=== PATIENT | female | born 1950 | race Caucasian/White ===

== ENCOUNTER 2017-06-26 08:15 | Emergency (ER) | payer MEDICARE ==
--- NOTE | 2017-06-26 08:17 | UC ---
Throat Pain/Nasal Jose HPI - HPI Summary HPI Summary: 66 year old female presents with cough and post nasal drip. - History of Current Complaint Stated Complaint: SORE THROAT Time Seen by Provider: 06/26/17 08:16 Hx Obtained From: Patient Onset/Duration: Lasting Days Severity: Moderate Pain Scale Used: 0-10 Numeric - 4 - Allergies/Home Medications Allergies/Adverse Reactions: Allergies Allergy/AdvReac Type Severity Reaction Status Date / Time Penicillins Allergy Unknown Verified 06/26/17 08:25 Reaction Details Sulfa Antibiotics Allergy Unknown Verified 06/26/17 08:25 Reaction Details Home Medications: Home Medications Ibuprofen TAB* [Advil TAB*] 400 mg PO Q6H PRN 06/26/17 [History Confirmed ] Zsdyyjljokruy-Jqoydpaovtzgk-Rn [Tylenol Sinus Severe 5-325-200 mg] 2 tab PO Q6H PRN 06/26/17 [History Confirmed 06/26/17] PMH/Surg Hx/FS Hx/Imm Hx Previously Healthy: Yes - Surgical History Surgical History: Yes Surgery Procedure, Year, and Place: cholecystectomy, hysterectomy,meniscus repair L knee, bone cyst removed Rhumerol head, rods lower back with cage, plates and screws - Family History Known Family History: Positive: None - Social History Alcohol Use: Weekly Substance Use Type: None Smoking Status (MU): Light Every Day Tobacco Smoker Type: Cigarettes Amount Used/How Often: 2-3 cig /day Have You Smoked in the Last Year: Yes Household Exposure Type: Cigarettes Review of Systems Constitutional: Negative Skin: Negative Eyes: Negative ENT: Sore Throat, Nasal Discharge, Sinus Congestion, Sinus Pain/Tenderness Respiratory: Negative Cardiovascular: Negative Gastrointestinal: Negative Genitourinary: Negative Motor: Negative Neurovascular: Negative Musculoskeletal: Negative Neurological: Negative Psychological: Negative All Other Systems Reviewed And Are Negative: Yes Physical Exam Triage Information Reviewed: Yes Eye Exam: Normal ENT: Positive: Pharyngeal erythema, Nasal congestion, Nasal drainage Dental Exam: Normal Neck exam: Normal Neck: Positive: 1 Respiratory Exam: Normal Cardiovascular Exam: Normal Abdominal Exam: Normal Musculoskeletal Exam: Normal Neurological Exam: Normal Psychological Exam: Normal Skin Exam: Normal Throat Pain/Nasal Course/Dx - Differential Dx/Diagnosis Provider Diagnoses: sinus congestion. cough. post nasal drip Discharge - Discharge Plan Condition: Stable Disposition: HOME Prescriptions: Azithromyxin JEANNA (NF) [Z-Jeanna (Zithromax) 250 mg tabs #6] 2 tab PO .TODAY, THEN 1 DAILY #6 tab Benzonatate [TESSALON 200 MG CAP] 200 mg PO TID PRN #30 cap PRN Reason: Cough LoraTADine TAB(NF) [Claritin 10 MG TAB(NF)] 10 mg PO DAILY #30 tab guaiFENesin/CODIEN 100MG-10MG* [Robitussin AC 100Mg-10Mg*] 5 ml PO Q8H PRN #120 ml MDD 15 ml PRN Reason: Cough Patient Education Materials: Pharyngitis (ED), Bronchospasm (ED), Acute Cough ( ED) Referrals: Dulce Polanco NP [Primary Care Provider] -
[2017-06-26 08:30] VITALS: BP 113/78
== END 2017-06-26 09:06 | disposition home or self-care (01) ==
LOC: UCCORT 08:15
DX: R05 Cough (principal); R09.82 Postnasal drip; R09.81 Nasal congestion; F17.210 Nicotine dependence, cigarettes, uncomplicated; Z88.0 Allergy status to penicillin; Z88.2 Allergy status to sulfonamides
CPT/HCPCS: 87651; 99212; G0463

== ENCOUNTER 2017-09-07 08:16 | Emergency (ER) | payer MEDICARE ==
[2017-09-07 08:27] VITALS: BP 139/59
--- NOTE | 2017-09-07 08:39 | UC ---
Respiratory Complaint HPI - HPI Summary HPI Summary: COUGH / CHEST CONGESTION X 3 DAYS + RUNNY NOSE , SORE THROAT NO FEVER, NO CHILLS - History of Current Complaint Chief Complaint: UCRespiratory Stated Complaint: ST/STUFFY NOSE Time Seen by Provider: 09/07/17 08:19 Hx Obtained From: Patient Onset/Duration: Gradual Onset, Lasting Days - 3, Still Present Timing: Constant Severity Initially: Moderate Severity Currently: Moderate Character: Cough: Nonproductive Aggravating Factors: Deep Breaths Associated Signs And Symptoms: Positive: URI, Nasal Congestion. Negative: Dyspnea, Fever, Chills, Pleuritic Chest Pain, Wheezing, Hemoptysis, Dizziness, Calf Pain, Calf Swelling - Allergies/Home Medications Allergies/Adverse Reactions: Allergies Allergy/AdvReac Type Severity Reaction Status Date / Time Penicillins Allergy Unknown Verified 09/07/17 08:27 Reaction Details Sulfa Antibiotics Allergy Unknown Verified 09/07/17 08:27 Reaction Details Home Medications: Home Medications Anti Gerd Med 1 tab PO DAILY 09/07/17 [History Confirmed 09/07/17] PMH/Surg Hx/FS Hx/Imm Hx GI/ History: Gastroesophageal Reflux Neurological History: Seizures - Surgical History Surgical History: Yes Surgery Procedure, Year, and Place: cholecystectomy, hysterectomy,meniscus repair L knee, bone cyst removed Rhumerol head, rods lower back with cage, plates and screws - Family History Known Family History: Positive: None Negative: Diabetes - Social History Alcohol Use: Weekly Substance Use Type: None Smoking Status (MU): Light Every Day Tobacco Smoker Type: Cigarettes Amount Used/How Often: 2-3 cig /day Length of Time of Smoking/Using Tobacco: Since Age 30 Have You Smoked in the Last Year: Yes Household Exposure Type: Cigarettes - Immunization History Most Recent Influenza Vaccination: "I don't do flu shots." Review of Systems Constitutional: Negative Skin: Negative Eyes: Negative ENT: Sore Throat, Nasal Discharge Respiratory: Negative, Cough Cardiovascular: Negative Gastrointestinal: Negative Is Patient Immunocompromised?: No All Other Systems Reviewed And Are Negative: Yes Physical Exam Triage Information Reviewed: Yes Appearance: Well-Appearing, No Pain Distress, Well-Nourished Vital Signs: Initial Vital Signs Temp 99 F 09/07/17 08:19 Pulse 80 09/07/17 08:19 Resp 20 09/07/17 08:19 BP 139/59 09/07/17 08:19 Pulse Ox 100 09/07/17 08:19 Vital Signs Reviewed: Yes Eyes: Positive: Conjunctiva Clear ENT: Positive: Normal ENT inspection, Hearing grossly normal, Pharynx normal, Nasal drainage Neck exam: Normal Neck: Positive: Supple, Nontender, No Lymphadenopathy Respiratory: Positive: Chest non-tender, Lungs clear, Normal breath sounds, No respiratory distress Cardiovascular: Positive: RRR, No Murmur, Pulses Normal Skin Exam: Normal UC Diagnostic Evaluation - Laboratory O2 Sat by Pulse Oximetry: 100 Respiratory Course/Dx - Differential Dx/Diagnosis Provider Diagnoses: URI Discharge - Discharge Plan Condition: Stable Disposition: HOME Patient Education Materials: Upper Respiratory Infection (ED) Referrals: Dulce Polanco NP [Primary Care Provider] - If Needed Additional Instructions: VIRAL ILLNESS MAY USE OTC MEDS / MUCINEX / FLONASE FOLLOW UP NEEDED
== END 2017-09-07 08:43 | disposition home or self-care (01) ==
LOC: UCCORT 08:16
DX: J06.9 Acute upper respiratory infection, unspecified (principal); F17.210 Nicotine dependence, cigarettes, uncomplicated; K21.9 Gastro-esophageal reflux disease without esophagitis
CPT/HCPCS: 99212; G0463